=== PATIENT | male | born 1970 | race Caucasian/White ===

== ENCOUNTER 2017-07-26 16:56 | Emergency (ER) | payer BC, OTHER ==
[2017-07-26] MEDS: ADACEL/BOOSTRIX VACCINE (DIPHTH/PERTUSS/ACELL/TETANUS)0.5ML SYR (90715) IM (17:42)
== END 2017-07-26 18:02 | disposition home or self-care (01) ==
LOC: M ED 16:56
DX: S61.206A Unspecified open wound of right little finger without damage to nail, initial encounter (principal); W45.8XXA Other foreign body or object entering through skin, initial encounter; Y92.89 Other specified places as the place of occurrence of the external cause; Y93.G1 Activity, food preparation and clean up
CPT/HCPCS: 90715

== ENCOUNTER 2022-10-13 11:31 | Day surgery (SDC) | payer BC, OTHER ==
[~2022-10-13] VITALS: Ht 170.2 cm; Wt 103.3 kg
[~2022-10-13 11:31] MED LIST: NS 1,000 ML IV ONE
[2022-10-13] MEDS ORDERED: LABETALOL 100MG/20ML VIAL As Ordered ONE (14:00)
[2022-10-13] MEDS ORDERED: LIDOCAINE 2% 100MG/5ML SDV (FOR ANES.) As Ordered ONE (14:00)
[2022-10-13] MEDS ORDERED: propofoL 200 MG/20 ML VIAL As Ordered ONE (14:00)
[2022-10-13 14:07] VITALS: TEMP 97.6
[2022-10-13 14:33] VITALS: BP 132/72; O2SAT 95
== END 2022-10-13 14:36 | disposition home or self-care (01) ==
LOC: M OPP 11:31
PROVIDERS: ATTEND Internal Medicine Gastroenterology
DX: Z12.11 Encounter for screening for malignant neoplasm of colon (principal); Z79.899 Other long term (current) drug therapy